=== PATIENT | female | born 1975 | race Caucasian/White ===

== ENCOUNTER 2020-08-28 16:35 | Emergency (ER) | payer SELFPAY ==
[~2020-08-28] VITALS: Ht 174 cm; Wt 72.0 kg
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
[2020-08-28] MEDS ORDERED: KETOROLAC 30 MG/ML VIAL IM ONE (18:15)
[2020-08-28] MEDS ORDERED: ORPHENADRINE 60 MG/2 ML (NORFLEX) AMP (ED ONLY) IM ONE (18:15)
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
[2020-08-28 19:43] VITALS: BP 120/77
== END 2020-08-28 19:45 | disposition home or self-care (01) ==
LOC: EDUNIT# 16:35 → ER 16:39
DX: S06.0X0A Concussion without loss of consciousness, initial encounter (principal); F32.9 Major depressive disorder, single episode, unspecified; F17.210 Nicotine dependence, cigarettes, uncomplicated; Y04.8XXA Assault by other bodily force, initial encounter
CPT/HCPCS: 70450; 70486; 72125; 84703

== ENCOUNTER 2022-11-14 20:36 | Emergency (ER) | payer SELFPAY ==
[2022-11-14] MEDS ORDERED: CEPH500T PO (22:32)
== END 2022-11-14 21:02 | disposition left against medical advice (07) ==
LOC: EDUNIT# 20:36 → ER 20:59
DX: S81.011A Laceration without foreign body, right knee, initial encounter (principal); W19.XXXA Unspecified fall, initial encounter

== ENCOUNTER 2022-11-14 21:26 | Emergency (ER) | payer SELFPAY ==
[~2022-11-14] VITALS: Ht 162.6 cm; Wt 90.0 kg
[2022-11-14] MEDS ORDERED: LIDOCAINE 1% INJ 10 ML VIAL INJ ONE (21:45)
[2022-11-14] MEDS ORDERED: TETANUS,DIPTH,PERTUSS P/F (BOOSTRIX) 0.5 ML VIAL IM ONE (22:15)
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
[2022-11-14] MEDS ORDERED: CEPHALEXIN 250 MG (KEFLEX) CAP PO ONE (22:30)
[2022-11-14] MEDS ORDERED: CEPH500T PO (22:32)
[2022-11-14 22:52] VITALS: BP 111/73
--- NOTE | 2022-11-15 05:55 | Diagnostic Imaging Report ---
INDICATION: knee pain COMPARISON: None. FINDINGS: 3 views of the right knee joint demonstrate no acute fracture or dislocation. No focal osseous lesions are seen. No significant joint effusion is seen. The surrounding soft tissue structures are unremarkable. There are no radiopaque foreign bodies. IMPRESSION: 1. No acute fractures or dislocations of the right knee joint. Dictated by: Dictated on workstation # [id number]
== END 2022-11-14 22:52 | disposition home or self-care (01) ==
LOC: EDUNIT# 21:26 → ER 21:28
DX: S81.011A Laceration without foreign body, right knee, initial encounter (principal); F17.210 Nicotine dependence, cigarettes, uncomplicated; Z23 Encounter for immunization; Z28.310 Unvaccinated for COVID-19; W03.XXXA Other fall on same level due to collision with another person, initial encounter
CPT/HCPCS: 73562; 90715